=== PATIENT | female | born 1940 | race Caucasian/White ===

== ENCOUNTER 2019-04-30 01:41 | Inpatient (IN) | payer MEDICARE, BC ==
[~2019-04-30] VITALS: Ht 157.5 cm; Wt 60.2 kg
[2019-04-30] VITALS (11 sets, daily range): BP systolic 102–131; BP diastolic 52–72; PULSE 63–85; RESP 16–18; Ht 157.5 cm; Wt 60.2 kg
[2019-04-30] MEDS ORDERED: ACETAMINOPHEN 325 MG TAB PO PRN (04:30)
[2019-04-30] MEDS: ASPIRIN (EC) 81 MG TAB PO SCH (08:04)
--- NOTE | 2019-04-30 12:25 | QN ---
Documentation Comment Pt seen and examined KASSANDRA POSADAS MD Apr 30, 2019 12:25
--- NOTE | 2019-04-30 12:27 | QN ---
Documentation Comment pt seen and examined KASSANDRA POSADAS MD Apr 30, 2019 12:27
[2019-04-30] MEDS: SOD CHLORIDE 0.9% 1,000 ML IV SCH (12:55)
[2019-04-30] MEDS ORDERED: ONDANSETRON 4 MG INJ IV PRN (13:00)
--- NOTE | 2019-04-30 15:21 | RADRPT ---
Echocardiogram Report [id number] : 1940 (78y 5m)Study Date: 04/30/2019 10:15:56 AM Gender: FAccession #: [id number] Tech: Ari Peterson RDCS Location: [facility] Ref.Physician: ANA CRISTINA QIU Height(Cm): BSA: Weight(Kg): Quality: AdequateOrder Physician: ANA CRISTINA QIU Account #: Procedures: Echocardiographic Report: Transthoracic echocardiogram with complete 2D, M-Mode, and doppler examination. Indications: ALOC. Measurements: 2D/M Mode Doppler Measurement Value Normal Range Measurement Value Normal Range LVIDd 2D 3.3 [ 3.8 - 5.2 ] cm AV Peak Dm 1.4 [ 100.0 - 170.0 ] cm/sec LVIDs 2D 2.1 [ 2.2 - 3.5 ] cm AV Peak PG 8.0 [ 2.0 - 9.0 ] mmHg LVPWd 2D 1.0 [ 0.6 - 0.9 ] cm LVOT Peak Dm 1.2 [ 70.0 - 110.0 ] cm/sec IVSd 2D 1.4 [ 0.6 - 0.9 ] cm LVOT Peak PG 6.0 [ 2.0 - 6.0 ] mmHg IVS/LVPW 2D 1.5 ratio MV E Peak Dm 0.8 [ 60.0 - 130.0 ] cm/sec AoR Diam 2D 2.2 [ 2.3 - 3.1 ] cm MV A Peak Dm 1.1 [ 100.0 - 120.0 ] cm/sec LA/Ao 2D 2 ratio MV E/A 0.7 [ 0.8 - 1.5 ] ratio LA Dimen 2D 3.5 [ 2.7 - 3.8 ] cm MV Decel Time 229 [ 104 - 258 ] msec Lat E` Dm 0.1 [ 10.0 - 15.0 ] cm/sec Med E` Dm 0.1 cm/sec MV E/A 0.7 [ 0.8 - 1.5 ] ratio TR Peak Dm 3.1 [ 100.0 - 280.0 ] cm/sec TR Peak PG 38.0 mmHg RVSP 41.0 [ 10.0 - 36.0 ] mmHg RA Pressure 3.0 mmHg Findings: Left Ventricle: Normal left ventricular systolic function. Normal left ventricular cavity size. Moderate asymmetric septal hypertrophy. Ejection fraction is visually estimated at 60 %. Tissue Doppler/Mitral Doppler indices are consistent with impaired relaxation (Stage I diastolic dysfunction). Right Ventricle: Normal right ventricular size. Normal right ventricular systolic function. Left Atrium: The left atrium is normal in size. Right Atrium: The right atrium is normal in size. Mitral Valve: Normal appearance and function of the mitral valve with trace physiologic regurgitation. Aortic Valve: No significant aortic stenosis or insufficiency. Aortic cusps appear mildly calcified. Tricuspid Valve: Normal appearance of the tricuspid valve. The estimated Peak RVSP is 41 mmHg. There is mild tricuspid regurgitation. Pulmonic Valve: Normal pulmonic valve appearance. Pericardium: Normal pericardium with no significant pericardial effusion. Pleural effusion seen. Aorta: Normal aortic root. IVC: Normal size and normal respiratory collapse consistent with normal right atrial pressure. Conclusions: Normal left ventricular systolic function. Normal left ventricular cavity size. Moderate asymmetric septal hypertrophy. Ejection fraction is visually estimated at 60 %. Tissue Doppler/Mitral Doppler indices are consistent with impaired relaxation (Stage I diastolic dysfunction). Normal appearance and function of the mitral valve with trace physiologic regurgitation. Normal appearance of the tricuspid valve. The estimated Peak RVSP is 41 mmHg. There is mild tricuspid regurgitation. Electronically Signed By: Pio Burroughs 2019-04-30 15:20:14 PDT
--- NOTE | 2019-04-30 15:56 | HP ---
DATE OF ADMISSION: 04/30/2019 REASON FOR ADMISSION: Altered mental status. HISTORY OF PRESENT ILLNESS: This is an 78-year-old female with a history of right hip fracture. No reported past medical history, presented to the emergency department at [facility] on 04/07 secondary to dizziness, diffuse weakness. History is obtained from the daughter. According t o the daughter, the patient was driving with her mother 2 days ago in [place]. At the end of the drive, the patient was having some weakness, dizziness, all of a sudden her head was moving back and forth. She had to go emergently to [facility]. There she had evaluation of stroke which included a CT and the CT angiogram of the head and neck. Workup was reportedly unremarkable. The patient was discharged home with meclizine as per records from [facility], however, we do not h ave any records available. The patient had been feeling well at approximately 1900 yesterday. The p atient became dizzy, everything become black, the head started moving back and forth. She denied any headache, any head trauma. The patient was brought into the [facility] for further evaluation. T here, patient had labs that were blood pressure 138/79, heart rate 87, BUN of 16, creatinine 0.8, whi te count 5.3, hemoglobin 12, platelet count 122. Patient had LFTs within normal limit. Had EKG that showed normal sinus rhythm. Troponin was negative. Patient had MRI of the brain which was unremark able, showed chronic volume loss and small vessel ischemic disease without evidence of stroke. Yolanda nt was transferred due to insurance reasons. According to the daughter, the patient is feeling very weak, goes back to sleep. Of note, patient denied any drug intake and the patient has not been to an y doctors. PAST MEDICAL HISTORY: None. ALLERGIES: None. PAST SURGICAL HISTORY: Right hip surgery. SOCIAL HISTORY: No history of smoking, alcohol or any drug use. Lives in [place] by herself, has 3 c cosmeen. FAMILY HISTORY: Noncontributory. REVIEW OF SYSTEMS: The patient complained of some dizziness, weakness, sleepiness. Patient has been prior very active, functional, lives by herself at home. Denied any chest pain, any shortness of br eath, any abdominal pain, nausea, vomiting, diarrhea. Denies any blurry vision. Denies any focal ne urological deficits currently. PHYSICAL EXAMINATION: VITAL SIGNS: Currently blood pressure of 108/62, afebrile, pulse 84, respirations 16. GENERAL: Patient is awake, alert, oriented, answers questions appropriately. HEENT: Pupils equal, round, reactive to light. NECK: Supple. HEART: Regular rate and rhythm. LUNGS: Clear to auscultate bilaterally. ABDOMEN: Soft, nontender and nondistended. Positive normoactive bowel sounds. EXTREMITIES: No clubbing, cyanosis, or edema. DIAGNOSTIC DATA: At the outside hospital, BUN and creatinine within normal limit. White count 5.7, hemoglobin 12, platelet count 122, EKG within normal limit. ASSESSMENT AND PLAN: This is an 78-year-old female with: 1. Recurrent periods of altered level of consciousness, rule out seizures, metabolic cause. Patient had an MRI at [facility] which was essentially negative for stroke. 2. History of right hip fracture. PLAN: At this period of time, the patient is admitted to [facility]. We will continue the patient on aspi rin, Tylenol, some gentle IV fluids. We will check for complete metabolic workup with a urinalysis, B12, folic acid. Also, check for ammonia, TSH, arterial blood gas. We will also get an echo and car otid ultrasound. Cardiology and neurology will be consulted. Rest of the treatment will depend on t he patient's hospitalization course. Dictated By: KASSANDRA ALONZO/CARO Conf#: [id number] DID#: [id number] CC: RUTH QIU MD;*[facility]*
--- NOTE | 2019-04-30 16:21 | CONSI ---
Assessment/Plan Assessment/Plan Assessment/Plan (Recall) 78 F w/o reported significant PMHx, who presents in [place] from an OSH for further workup and management following recurrent and transient spells.. The clinical picture is atypical for seizure...more reminiscent of panic attacks.. She is noted to have a low TSH, which could be a potential contributor.. OSH MRI Brain was reportedly unremarkable. P: EEG for further characterization Defer AED Tx for now Other medical management and supportive care per primary Will follow Consultation Date/Type/Reason Admit Date/Time Apr 30, 2019 at 02:54 Type of Consult Neurology Reason for Consultation transient spells Requesting Provider: KASSANDRA POSADAS MD Date/Time of Note DATE: 04/30/19 TIME: 16:13 Hx of Present Illness 78 F w/o reported PMHx, who presents for evaluation following recurrent spells x 2 days. She notes that she had visitors in her home who stressed her out on the date of Sx onset.. Since, she has had daily episodes lasting ~15 minutes, of pressure in head, followed by a feeling of "numbness" all over her body...with dizziness +/- headache... These Sx brought her to various hospital...and ultimately to [facility] in [place] from [facility].. She is presently ASx.. It is elsewhere noted: This is an 78-year-old female with a history of right hip fracture. No reported past medical history, presented to the emergency department at [facility] on 04/29/2019 secondary to dizziness, diffuse weakness. History is obtained from the daughter. According to the daughter, the patient was driving with her mother 2 days ago in [place]. At the end of the drive, the patient was having some weakness, dizziness, all of a sudden her head was moving back and forth. She had to go emergently to [facility]. There she had evaluation of stroke which included a CT and the CT angiogram of the head and neck. Workup was reportedly unremarkable. The patient was discharged home with meclizine as per records from [facility], however, we do not have any records available. The patient had been feeling well at approximately 1900 yesterday. The patient became dizzy, everything become black, the head started moving back and forth. She denied any headache, any head trauma. The patient was brought into the [facility] for further evaluation. There, patient had labs that were blood pressure 138/79, heart rate 87, BUN of 16, creatinine 0.8, white count 5.3, hemoglobin 12, platelet count 122. Patient had LFTs within normal limit. Had EKG that showed normal sinus rhythm. Troponin was negative. Patient had MRI of the brain which was unremarkable, showed chronic volume loss and small vessel ischemic disease without evidence of stroke. Patient was transferred due to insurance reasons. According to the daughter, the patient is feeling very weak, goes back to sleep. Of note, patient denied any drug intake and the patient has not been to any doctors. o/w neg Objective Exam Vitals Vital Signs Date Temp Pulse Resp B/P (MAP) Pulse Ox O2 O2 Flow FiO2 Time Delivery Rate 04/30/19 98.8 69 16 102/58 95 16:06 (73) 04/30/19 Room Air 04:18 Exam PE: Gen Appearance: No Apparent Distress HEENT: Normocephalic Cardiovascular: Regular rate Lungs: Clear bilaterally Abdomen: Soft Extremities: Dry NE: The patient was alert and oriented. Language was normal. Fund of knowledge was normal. Pupils were equal and reactive to light. There was no afferent pupillary defect. Visual pablo were normal. Funduscopic examination was limited. Extra-ocular movements were full. Ptosis was absent. There was no nystagmus. Facial sensation was normal. Face was symmetric with normal strength. Hearing was intact. Palate movements were normal. Neck strength was normal. There was normal tongue bulk and speed of movement. Tone was normal. Muscle bulk was normal. I did not see fasciculations. Arms and legs were strong. Vibration sensation was normal. Temperature and pinprick sensation was normal. Rapid alternating movements were normal. There was no dysmetria. There was no intention tremor. Gait was deferred due to bedrest. Arm and leg reflexes were symmetric. Kirkpatrick's sign was absent. Plantar responses were flexor. Results Result Diagram: 04/30/19 1319 04/30/19 1319 Results 24hrs Laboratory Tests Test 04/30/19 04:45 04/30/19 10:37 04/30/19 12:24 04/30/19 13:19 Troponin I < 0.012 < 0.012 Triglycerides 95 Level Cholesterol Level 168 LDL Cholesterol, 99 Calculated HDL Cholesterol 50 Cholesterol/HDL 3.3 Ratio Blood Gas Blood arterial Specimen Source Arterial Blood 04/30/2019 1:39:5 Date Drawn 7 PM Arterial Blood pH 7.392 (Temp corrected) Arterial Blood 45.3 H pCO2 (Temp correct) Arterial Blood 72.6 L pO2 (Temp corrected) Arterial Blood 26.9 H HCO3 Arterial Blood 1.6 Base Excess Arterial Blood 94.2 L Oxygen Saturation Tre Test ACCEPTAB Arterial Blood Right Radial Gas Puncture Site Arterial 0.3 Blood Carboxyhemo globin Arterial Blood 0 Methemoglobin Blood Gas A-a O2 22.9 Differential Oxyhemoglobin 93.9 Percent Blood Gas 37.0 Temperature Blood Gas ROOM AIR Modality FiO2 21.0 Blood Gas TM Notified Whom Blood Gas 04/30/2019 1:48:2 Notified Time 4 PM White Blood Count 6.4 Red Blood Count 3.46 L Hemoglobin 11.2 L Hematocrit 34.3 L Mean Corpuscular 99.1 Volume Mean Corpuscular 32.4 Hemoglobin Mean Corpuscular 32.7 Hemoglobin Concen t Red Cell 11.2 L Distribution Width Platelet Count 225 Mean Platelet 10.4 Volume Immature 0.300 Granulocytes % Neutrophils % 47.5 Lymphocytes % 42.0 Monocytes % 6.7 Eosinophils % 2.7 Basophils % 0.8 Nucleated Red 0.0 Blood Cells % Immature 0.020 Granulocytes # Neutrophils # 3.0 Lymphocytes # 2.7 Monocytes # 0.4 Eosinophils # 0.2 Basophils # 0.1 Nucleated Red 0.0 Blood Cells # Sodium Level 143 Potassium Level 4.2 Chloride Level 109 Carbon Dioxide 27 Level Anion Gap 7 Blood Urea 16 Nitrogen Creatinine 0.67 Est Glomerular Filtrat Rate mL/min Glucose Level 100 Calcium Level 8.4 Total Bilirubin 0.2 Direct Bilirubin 0.00 Indirect 0.2 Bilirubin Aspartate Amino 24 Transf (AST/SGOT) Alanine 17 Aminotransferase (ALT/SGPT) Alkaline 74 Phosphatase Ammonia 14 Total Protein 6.2 Albumin 3.3 Globulin 2.90 Albumin/Globulin 1.13 Ratio Vitamin B12 Level Pending Folate 13.5 Thyroid 0.233 L Stimulating Hormone (TSH) Test 04/30/19 14:00 Urine Color STRAW Urine Clarity CLEAR Urine pH 7.0 Urine Specific 1.003 Taylors Urine Ketones NEGATIVE Urine Nitrite NEGATIVE Urine Bilirubin NEGATIVE Urine NEGATIVE Urobilinogen Urine Leukocyte NEGATIVE Esterase Urine Microscopic 2 RBC Urine Microscopic 1 WBC Urine Hemoglobin 1+ H Urine Glucose NEGATIVE Urine Total NEGATIVE Protein Past Medical History reviewed Medications Current Medications Aspirin (Halfprin) 81 mg DAILY PO Last administered on 04/30/19at 08:04; Admin Dose 81 MG; Start 04/30/19 at 09:00 Acetaminophen (Tylenol Tab) 650 mg Q6H PRN PO MILD PAIN(1-3)OR ELEVATED TEMP; Start 04/30/19 at 04:30 Sodium Chloride 1,000 ml @ 40 mls/hr Q24H IV Last administered on 04/30/19at 12:55; Admin Dose 40 MLS/HR; Start 04/30/19 at 13:00 Ondansetron HCl (Zofran Inj) 4 mg Q6H PRN IV NAUSEA AND/OR VOMITING; Start 04/30/19 at 13:00 Allergies: Coded Allergies: No Known Allergy (Unverified , 04/30/19) Social History Smoking Status: Never smoker DALIA FLETCHER Apr 30, 2019 16:21
[2019-05-01] VITALS (10 sets, daily range): BP systolic 101–118; BP diastolic 60–70; PULSE 60–76; RESP 16–17
[2019-05-01] MEDS: ASPIRIN (EC) 81 MG TAB PO SCH (08:40)
[2019-05-01] MEDS: SOD CHLORIDE 0.9% 1,000 ML IV SCH (13:00)
--- NOTE | 2019-05-01 13:53 | PN ---
Date/Time of Note Date/Time of Note DATE: 05/01/19 TIME: 13:51 Assessment/Plan VTE Prophylaxis Risk score (from Ns)>0 risk: 4 SCD applied (from Nsg): Yes Pharmacological prophylaxis: NA/contraindicated Pharm contraindication: low risk/ambulating Lines/Catheters IV Catheter Type (from Nrsg): Saline Lock Urinary Cath still in place: No Assessment/Plan Assessment/Plan 78-year-old female with: 1. Recurrent periods of altered level of consciousness, rule out seizures, metabolic cause. Patient had an MRI at [facility] which was essentially negative for stroke. 2. History of right hip fracture. 3 Low TSH plan carotid ultrasound found normal. Echo with a EF of 60% Check T3-T4 Orthostatics PT eval No arrhythmias found on the monitor Result Diagram: 04/30/19 1319 04/30/19 1319 Results 24hrs Laboratory Tests Test 04/30/19 14:00 04/30/19 17:00 05/01/19 10:47 Urine Color STRAW Urine Clarity CLEAR Urine pH 7.0 Urine Specific [place] 1.003 Urine Ketones NEGATIVE Urine Nitrite NEGATIVE Urine Bilirubin NEGATIVE Urine Urobilinogen NEGATIVE Urine Leukocyte Esterase NEGATIVE Urine Microscopic RBC 2 Urine Microscopic WBC 1 Urine Hemoglobin 1+ H Urine Glucose NEGATIVE Urine Total Protein NEGATIVE Troponin I < 0.012 Free Thyroxine 1.05 Free Triiodothyronine (T3) pg/mL 3.52 Subjective 24 Hr Interval Summary Free Text/Dictation NO Acute events. Talk with the help of a Farsi infant caregiver. Patient feels dizzy at times Exam/Review of Systems Exam Vitals Vital Signs Date Temp Pulse Resp B/P (MAP) Pulse Ox O2 O2 Flow FiO2 Time Delivery Rate 05/01/19 74 12:43 05/01/19 98.6 17 118/65 97 11:33 (82) 04/30/19 Room Air 04:18 Intake and Output 04/30/19 04/30/19 05/01/19 1515:00 23:00 07:00 IntakeIntake Total 640 ml 300 ml 1200 ml BalanceBalance 640 ml 300 ml 1200 ml Exam GENERAL: Patient is awake, alert, oriented, answers questions appropriately. HEENT: Pupils equal, round, reactive to light. NECK: Supple. HEART: Regular rate and rhythm. LUNGS: Clear to auscultate bilaterally. ABDOMEN: Soft, nontender and nondistended. Positive normoactive bowel sounds. EXTREMITIES: No clubbing, cyanosis, or edema. Results Results 24hrs Laboratory Tests Test 04/30/19 14:00 04/30/19 17:00 05/01/19 10:47 Urine Color STRAW Urine Clarity CLEAR Urine pH 7.0 Urine Specific [place] 1.003 Urine Ketones NEGATIVE Urine Nitrite NEGATIVE Urine Bilirubin NEGATIVE Urine Urobilinogen NEGATIVE Urine Leukocyte Esterase NEGATIVE Urine Microscopic RBC 2 Urine Microscopic WBC 1 Urine Hemoglobin 1+ H Urine Glucose NEGATIVE Urine Total Protein NEGATIVE Troponin I < 0.012 Free Thyroxine 1.05 Free Triiodothyronine (T3) pg/mL 3.52 Medications Medication Current Medications Aspirin (Halfprin) 81 mg DAILY PO Last administered on 05/01/19at 08:40; Admin Dose 81 MG; Start 04/30/19 at 09:00 Acetaminophen (Tylenol Tab) 650 mg Q6H PRN PO MILD PAIN(1-3)OR ELEVATED TEMP; Start 04/30/19 at 04:30 Sodium Chloride 1,000 ml @ 40 mls/hr Q24H IV Last administered on 04/30/19at 12:55; Admin Dose 40 MLS/HR; Start 04/30/19 at 13:00 Ondansetron HCl (Zofran Inj) 4 mg Q6H PRN IV NAUSEA AND/OR VOMITING; Start 04/30/19 at 13:00 KASSANDRA POSADAS MD May 01, 2019 13:53
--- NOTE | 2019-05-02 07:10 | EEG ---
EEG NOTE Report Details DATE OF TEST: 05/01/2019 HISTORY: The patient is a 78-year-old F who presents with recurrent nonspecific spells. This EEG is requested to evaluate for an epileptic disorder. SEDATION: None. CONDITIONS OF RECORDING: This EEG was recorded digitally on the [employer] machine, using the International 10-20 System of electrodes plus anterior temporals and [place]. STATES SAMPLED: Wakefulness and drowsiness. FINDINGS: During wakefulness, there is a 10 Hz posterior dominant rhythm, which attenuates normally with eye opening. There is a normal [id number] frequency-amplitude gradient. The remainder of the awake background is normal. Photic stimulation elicits bilateral driving responses at some intermediate flash frequencies. Hyperventilation was not performed. The patient became drowsy but did not pass into sleep. No asymmetries, focal abnormalities or epileptiform discharges were seen. IMPRESSION: Normal electroencephalogram during wakefulness and drowsiness. DALIA FLETCHER May 02, 2019 07:10
== END 2019-05-01 19:20 | disposition left against medical advice (07) | DRG 642 ==
LOC: 6WM 02:54
PROVIDERS: ADMIT Internal Medicine Nephrology; ATTEND Internal Medicine Nephrology
DX: E88.81 Metabolic syndrome and other insulin resistance (principal); R41.82 Altered mental status, unspecified; R94.6 Abnormal results of thyroid function studies; R56.9 Unspecified convulsions; F41.0 Panic disorder [episodic paroxysmal anxiety]; Z87.81 Personal history of (healed) traumatic fracture; Z79.82 Long term (current) use of aspirin
CPT/HCPCS: 36600; 80053; 80061; 81001; 82140; 82607; 82746; 82803; 84439; 84443; 84481; 84484; 85025; 93306; 93880; 95819; J7030

== ENCOUNTER 2019-05-08 15:46 | Emergency (ER) | payer MEDICARE, BC ==
[~2019-05-08] VITALS: Wt 58.5 kg
[2019-05-08] MEDS ORDERED: ACET325T33 PO (18:54)
--- NOTE | 2019-05-08 19:29 | ERD ---
ER Documentation Chief Complaint Chief Complaint R. HIP PAIN W BRUISING, -FALL, HX OF R. HIP REPLACMT 2 YRS AGO, AMBULATORY HPI History of Present Illness: 78-year-old female being today by family member with complaint of right hip pain and bruising. Denies injury or trauma. Recent hospitalization for stroke evaluation; family reports that all findings were negative. Patient with complaint of pain to right hip and right thigh. At home pharmacological/nonpharmacological treatment for symptoms: Denies medication Denies social concerns; Denies recent foreign travel ROS All systems reviewed and are negative except as per history of present illness. Medications Home Meds Active Scripts Acetaminophen* (Tylenol*) 325 Mg Tablet, 2 TAB PO Q6 PRN for PAIN AND OR ELEVAT ED TEMP, #20 TAB Prov:MIL ALANIZ NP 05/08/19 Allergies Allergies: Coded Allergies: No Known Allergy (Unverified , 04/30/19) PMhx/Soc History of Surgery: No Anesthesia Reaction: No Hx Neurological Disorder: No Hx Respiratory Disorders: No Hx Cardiac Disorders: No Hx Psychiatric Problems: No Hx Miscellaneous Medical Probl: No Hx Alcohol Use: No Hx Substance Use: No Hx Tobacco Use: No FmHx Family History: No diabetes Physical Exam Vitals Vital Signs Date Temp Pulse Resp B/P (MAP) Pulse Ox O2 O2 Flow FiO2 Time Delivery Rate 05/08/19 97.9 74 20 131/67 96 16:52 (88) Physical Exam Const: No acute distress, afebrile Head: Atraumatic Eyes: Normal Conjunctiva ENT: Normal External Ears, Nose and Mouth. Neck: Full range of motion. No meningismus. Resp: Clear to auscultation bilaterally Cardio: Regular rate and rhythm, no murmurs Abd: Soft, non tender, non distended. No guarding, no masses, no rigidity Skin: No petechiae or rashes Back: No midline or flank tenderness Ext: No cyanosis, or edema; rle: Tenderness to palpation over right hip, 2 contusions noted, unable to palpate if there is, Neur: Awake and alert x3, speaking in clear sentences, no focal deficits or facial asymmetry Psych: Normal Mood and Affect Procedures/MDM ED COURSE: ED course includes a thorough examination and history. The patient was stable throughout ED course. I kept the patient and/or family informed of laboratory and diagnostic imaging results throughout the ED course. LABS: None MEDICATIONS GIVEN IN ER: None. Patient declines any medication DIAGNOSTIC IMAGING: Read by radiologist. Femur x-ray showing: IMPRESSION: No acute abnormality. Status post open reduction internal fixation right intertrochanteric hip fracture. .Abel Pool MD, MD Date Time Electronically viewed and signed by .Abel Pool MD, MD on 05/08/2019 18:26 Right hip x-ray showing: IMPRESSION: No acute abnormality. Status post open reduction internal fixation right intertrochanteric hip fracture . .Abel Pool MD, MD Date Time Electronically viewed and signed by .Abel Pool MD, MD on 05/08/2019 18:27 Ultrasound soft tissues of right hip: IMPRESSION: Normal soft tissue ultrasound lateral right thigh. No hematoma. No discrete fluid collection or abscess. .Abel Pool MD, MD Date Time Electronically viewed and signed by .Abel Pool MD, MD on 05/08/2019 18:28 PROCEDURES: None. MEDICAL DECISION MAKING: Low suspicion for life-threatening medical emergency. Otherwise healthy patient presenting with constellation of symptoms likely representing right hip pain and contusion as characterized by history, physical exam findings, radiology findings.. Patient reassessment @ 1855: Results discussed. Family reports that patient admitted to recently to start taking aspirin due to recommendations from another doctor due to stroke evaluation. Patient hemodynamically stable. No respiratory distress, otherwise relatively well appearing and nontoxic. Disposition given. Patient educated on diagnoses, prescriptions, follow-up care, return precautions. Strict return precautions given for worsening condition; questions answered discharge. Patient verbalizes understanding of discharge instructions. PRESCRIPTIONS FOR HOME: Acetaminophen DISPOSITION: DISCHARGE At this time, patient is stable for discharge and outpatient management. I have instructed the patient to follow-up with his/her primary care physician in 1-2 days. I have discussed with the patient the possibility of needing to see a specialist for further workup and imaging studies if symptoms persist. I have instructed the patient to promptly return to the ER for any new or worsening symptoms including increased pain, fever, nausea, vomiting, weakness or LOC. The patient and/or family expressed understanding of and agreement with this plan. All questions were answered. Home care instructions were provided. DISCLAIMER: Inadvertent spelling and grammatical errors are likely due to EHR/dictation software use and do not reflect on the overall quality of patient care. Also, please note that the electronic time recorded on this note does not necessarily reflect the actual time of the patient encounter. Departure Diagnosis: Primary Impression: Contusion Additional Impression: Hip pain Condition: Stable Patient Instructions: Contusion, Lower Extremity Referrals: [facility] YOU HAVE RECEIVED A MEDICAL SCREENING EXAM AND THE RESULTS INDICATE THAT YOU DO NOT HAVE A CONDITION THAT REQUIRES URGENT TREATMENT IN THE EMERGENCY DEPARTMENT. FURTHER EVALUATION AND TREATMENT OF YOUR CONDITION CAN WAIT UNTIL YOU ARE SEEN IN YOUR DOCTORS OFFICE WITHIN THE NEXT 1-2 DAYS. IT IS YOUR RESPONSIBILITY TO MAKE AN APPOINTMENT FOR FOLOW-UP CARE. IF YOU HAVE A PRIMARY DOCTOR --you should call your primary doctor and schedule an appointment IF YOU DO NOT HAVE A PRIMARY DOCTOR YOU CAN CALL OUR PHYSICIAN REFERRAL HOTLINE AT IF YOU CAN NOT AFFORD TO SEE A PHYSICIAN YOU CAN CHOSE FROM THE FOLLOWING [facility] [address] [facility]. [facility] [address] [facility] [address] [facility]. [facility] [address] [facility]. [facility] [address] [facility]. [facility]. [address] [facility]. [facility] YOU HAVE RECEIVED A MEDICAL SCREENING EXAM AND THE RESULTS INDICATE THAT YOU DO NOT HAVE A CONDITION THAT REQUIRES URGENT TREATMENT IN THE EMERGENCY DEPARTMENT. FURTHER EVALUATION AND TREATMENT OF YOUR CONDITION CAN WAIT UNTIL YOU ARE SEEN IN YOUR DOCTORS OFFICE WITHIN THE NEXT 1-2 DAYS. IT IS YOUR RESPONSIBILITY TO MAKE AN APPOINTMENT FOR FOLOW-UP CARE. IF YOU HAVE A PRIMARY DOCTOR --you should call your primary doctor and schedule and appointment IF YOU DO NOT HAVE A PRIMARY DOCTOR YOU CAN CALL OUR PHYSICIAN REFERRAL HOTLINE AT . IF YOU CAN NOT AFFORD TO SEE A PHYSICIAN YOU CAN CHOSE FROM THE FOLLOWING [facility], [facility] INSTITUTIONS: [facility] [address] [place] [address] [facility] [address] [place] [address] [facility] [address] [place] [address] Additional Instructions: Thank you very much for allowing us to participate in your care. Your health and safety is our top priority at [facility]. It is important to read all discharge instructions and education provided in your discharge packet. Call your primary care doctor TOMORROW for an appointment during the next 2-4 days and bring all the information and medications prescribed. Have prescriptions filled and follow precisely the directions on the label. --Acetaminophen as a medication for pain and/or fever. Take this medication as needed for mild to moderate pain. This medication will not cause drowsiness. If the symptoms get worse and your provider is unavailable, return to the Emergency Department immediately. MIL ALANIZ NP May 08, 2019 19:29
[2019-05-08 19:30] VITALS: BP 131/67; PULSE 87; RESP 20
== END 2019-05-08 19:37 | disposition home or self-care (01) ==
LOC: FTE 15:46
DX: S70.01XA Contusion of right hip, initial encounter (principal); W18.39XA Other fall on same level, initial encounter; Y92.9 Unspecified place or not applicable
CPT/HCPCS: 73510; 73550; 76536